=== PATIENT | male | born 1985 | race Caucasian/White ===

== ENCOUNTER 2017-01-16 15:00 | Emergency (ER) | payer OTHER ==
[~2017-01-16] VITALS: Ht 170.2 cm; Wt 74.8 kg
[2017-01-16 15:01] VITALS: BP 114/76
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
--- NOTE | 2017-01-16 17:28 | NUR ---
PATIENT SEEN IN TRIAGE BY KERRI
--- NOTE | 2017-01-16 18:00 | NUR ---
Patient being evaluated by physician in [facility]
--- NOTE | 2017-01-16 18:12 | NUR ---
PATIENT ELOPED FROM ER AT THIS TIME
== END 2017-01-16 18:12 | disposition left against medical advice (07) ==
LOC: MED 15:00
DX: S20.211A Contusion of right front wall of thorax, initial encounter (principal); F12.10 Cannabis abuse, uncomplicated; V49.60XA Unspecified car occupant injured in collision with unspecified motor vehicles in traffic accident, initial encounter; Y93.I9 Activity, other involving external motion; Y92.488 Other paved roadways as the place of occurrence of the external cause; Y99.8 Other external cause status
CPT/HCPCS: 71101; 99284

== ENCOUNTER 2021-11-04 16:17 | Emergency (ER) | payer MEDICAID, OTHER ==
[~2021-11-04] VITALS: Ht 170.2 cm; Wt 79.4 kg
[2021-11-04 16:21] VITALS: BP 111/68
--- NOTE | 2021-11-04 16:30 | NUR ---
PT BROUGHT OT BED 2 IN WHEELCHAIR
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
[2021-11-04] MEDS ORDERED: HYDROcodone/APAP 10/325 MG 1 TAB TAB PO ONE (17:45)
[2021-11-04] MEDS ORDERED: NICOTINE TRANSD SYS 14 MG/24 HR PATCH TD ONE (17:45)
--- NOTE | 2021-11-04 18:19 | NUR ---
DR LUNA AT BEDSIDE FOR EVAL
[2021-11-04 18:26] VITALS: BP 108/78
[2021-11-04] MEDS ORDERED: ACET-10509 PO (18:26)
[2021-11-04] MEDS ORDERED: CEPH-588 PO (18:26)
[2021-11-04] MEDS ORDERED: IBUP-2213 PO (18:26)
--- NOTE | 2021-11-04 18:34 | NUR ---
Patient discharged with v/s stable. Written and verbal after care instructions given and explained. Patient alert, oriented and verbalized understanding of instructions. WHEELCHAIR BOUND WITH STEADY MOVEMENT. All questions addressed prior to discharge. ID band removed. Patient advised to follow up with PMD. Rx of KEFLEX, MOTRIN, TYLENOL given. Patient educated on indication of medication including possible reaction and side effects. Opportunity to ask questions provided and answered. GIVEN FOOD.
== END 2021-11-04 18:34 | disposition home or self-care (01) ==
LOC: MED 16:17
DX: S71.131A Puncture wound without foreign body, right thigh, initial encounter (principal); L08.89 Other specified local infections of the skin and subcutaneous tissue; F17.210 Nicotine dependence, cigarettes, uncomplicated; Z79.899 Other long term (current) drug therapy; Z79.1 Long term (current) use of non-steroidal anti-inflammatories (NSAID); Z79.2 Long term (current) use of antibiotics; W34.09XA Accidental discharge from other specified firearms, initial encounter; Y93.89 Activity, other specified; Y92.89 Other specified places as the place of occurrence of the external cause; Y99.8 Other external cause status
CPT/HCPCS: 99283